=== PATIENT | female | born 1975 | race Hispanic/Latino ===

== ENCOUNTER 2016-10-24 00:05 | Emergency (ER) | payer MEDICARE ==
[2016-10-24 00:47] LABS: Basophils % (Auto) 0.7 % (0.0-1.8); Eosinophils % (Auto) 2.3 % (0.0-4.3); Hemoglobin 14.6 gm/dl (10.1-14.3); Mean Corpuscular HGB Conc 35 % (30-34); Mean Corpuscular Hemoglobin 31 pg (28-32); Mean Corpuscular Volume 88 fl (79-97); Platelet Count 419 K/mm3 (140-440); Red Blood Count 4.75 M/mm3 (3.65-5.03); White Blood Count 7.1 K/mm3 (4.5-11.0)
[2016-10-24 01:03] LABS: Alanine Aminotransferase 19 units/L (7-56); Albumin 4.6 g/dL (3.9-5); Albumin/Globulin Ratio 1.4 %; Alkaline Phosphatase 56 units/L (35-129); Anion Gap 22 mmol/L; BUN/Creatinine Ratio 11.25; Blood Urea Nitrogen 9 mg/dL (7-17); Calcium 9.7 mg/dL (8.4-10.2); Carbon Dioxide 22 mmol/L (22-30); Chloride 101.5 mmol/L (98-107); Glucose 122 mg/dL (65-100); Lipase 15 units/L (13-60); Potassium 4.2 mmol/L (3.6-5.0); Sodium 141 mmol/L (137-145)
[2016-10-24 01:21] LABS: Bacteria,Urine 1+ /HPF (Negative); Bilirubin,Urine SM (Negative); Blood,Urine NEG (Negative); Ketones,Urine TR mg/dL (Negative); Leukocyte Esterase,Urine LG (Negative); Mucus,Urine 3+ /HPF; Nitrite,Urine NEG (Negative); Urobilinogen,Urine < 2.0 mg/dL (<2.0)
[2016-10-24 04:03] LABS: Bilirubin,Urine NEG (Negative); Blood,Urine NEG (Negative); Ketones,Urine TR mg/dL (Negative); Leukocyte Esterase,Urine TR (Negative); Mucus,Urine 3+ /HPF; Nitrite,Urine NEG (Negative); Urobilinogen,Urine < 2.0 mg/dL (<2.0)
[2016-10-24] MEDS ORDERED: NACL 0.9% 1000 ML 1,000 ML IV ONE (07:18)
[2016-10-24] MEDS ORDERED: ZOFRAN IV ONE (07:18)
--- NOTE | 2016-10-24 07:21 | Emergency Department Report ---
ED Abdominal Pain HPI - General Chief Complaint: Abdominal Pain Stated Complaint: NAUSEA, WEAK Time Seen by Provider: 10/24/16 07:12 Source: patient Mode of arrival: Ambulatory Limitations: No Limitations - History of Present Illness Initial Comments: 41 yo female with a past medical history of arthritis, migraines, hypertension, seizures, surgical history of cholecystectomy and tubal ligation presents to the hospital with complaints of nausea, vomiting, and diarrhea. Symptoms 1 week. Poor by mouth tolerance secondary to the symptoms. Patient vomiting and having a bowel movement every time she eats. She denies melena, hematochezia, hematemesis, recent travel, sick contacts, or fever. Patient complains of lower abdominal pressure when she has to have a bowel movement or urinate but denies significant pain. His pressures rated 6/10 in intensity. Also worse with palpation and intermittent. Severity scale (0 -10): 0 - Related Data Home Medications Medication Instructions Recorded Confirmed Last Taken Hydrochlorothiazide [HCTZ] 25 mg PO QDAY 04/04/15 10/24/16 10/23/16 18:00 Propranolol [Inderal] 10 mg PO BID 04/04/15 10/24/16 10/23/16 18:00 QUEtiapine [SEROquel] 200 mg PO BID 04/04/15 10/24/16 10/23/16 18:00 Sertraline [Zoloft] 100 mg PO QDAY 04/04/15 10/24/16 10/23/16 18:00 Previous Rx's Medication Instructions Recorded Last Taken Type HYDROcodone/APAP 5-325 [[place] 1 - 2 each PO Q4HR PRN #30 tablet 04/10/15 18:00 Rx 5/325] Loperamide [Imodium] 2 mg PO Q2HR PRN #20 capsule 10/24/16 Unknown Rx Ondansetron [Zofran Odt] 4 mg PO Q8HR PRN #20 tab.rapdis 10/24/16 Unknown Rx Allergies Allergy/AdvReac Type Severity Reaction Status Date / Time metaxalone [From Skelaxin] Allergy Seizure Verified 10/24/16 02:32 naproxen Allergy Seizure Verified 10/24/16 02:32 ED Review of Systems ROS: Stated complaint: NAUSEA, WEAK Other details as noted in HPI Comment: All other systems reviewed and negative Other: Constitutional: No fevers chills Eyes: No eye pain visual changes ENT: No ear pain or throat pain Neck: Denies pain Respiratory: Denies cough wheezing shortness of breath Cardiovascular: Denies chest pain, palpitations, syncope GI: As per HPI : Denies dysuria Musculoskeletal: Denies back pain, joint swelling Skin: Denies rash, lesions, erythema Neurologic: Denies headache, numbness, weakness Psychiatric: Denies suicidal ideation, hallucinations ED Past Medical Hx - Past Medical History Previous Medical History?: Yes Hx Hypertension: Yes (FOR 6 MTHS) Hx Renal Disease: No Hx Arthritis: Yes (IN BACK) Hx Headaches / Migraines: Yes (MIGRAINES) Hx Seizures: Yes ( A KID, LAST ONE IN 2000) Hx Asthma: No Hx HIV: No Additional medical history: bulging disc / djd - Surgical History Past Surgical History?: Yes Hx Cholecystectomy: Yes Additional Surgical History: tubal ligation - Social History Smoking Status: Never Smoker Substance Use Type: None - Medications Home Medications: Home Medications Medication Instructions Recorded Confirmed Last Taken Type Hydrochlorothiazide [HCTZ] 25 mg PO QDAY 04/04/15 10/24/16 10/23/16 18:00 History Propranolol [Inderal] 10 mg PO BID 04/04/15 10/24/16 10/23/16 18:00 History QUEtiapine [SEROquel] 200 mg PO BID 04/04/15 10/24/16 10/23/16 18:00 History Sertraline [Zoloft] 100 mg PO QDAY 04/04/15 10/24/16 10/23/16 18:00 History HYDROcodone/APAP 5-325 [[place] 1 - 2 each PO Q4HR PRN #30 tablet 04/10/1510/23/16 18:00 Rx 5/325] Loperamide [Imodium] 2 mg PO Q2HR PRN #20 capsule 10/24/16 Unknown Rx Ondansetron [Zofran Odt] 4 mg PO Q8HR PRN #20 tab.rapdis 10/24/16 Unknown Rx ED Physical Exam - General Limitations: No Limitations - Other Other exam information: General: No limitations, patient is alert in no acute distress Head exam: Atraumatic, normocephalic Eyes exam: Normal appearance, pupils equal reactive to light, extraocular movements intact ENT: Moist mucous membrane, normal oropharynx Neck exam: Normal inspection, full range of motion, no meningismus nontender Respiratory exam: Clear to auscultation bilateral, no wheezes, rales, crackles Cardiovascular: Normal rate and rhythm, normal heart sounds Abdomen: Soft, nondistended, increased bowel sounds, left lower quadrant and suprapubic tenderness, no rebound or guarding Extremity: Full range of motion normal inspection no deformity Back: Normal Inspection, full range of motion, no tenderness Neurologic: Alert, oriented x3, cranial nerves intact, no motor or sensory deficit Psychiatric: normal affect, normal mood Skin: Warm, dry, intact ED Course Vital Signs 10/24/16 10/24/16 10/24/16 00:12 02:16 06:00 Temperature 99.3 F Pulse Rate 109 H 88 75 Respiratory 22 16 16 Rate Blood Pressure 120/88 Blood Pressure 108/74 111/58 [Left] O2 Sat by Pulse 99 95 95 Oximetry - Reevaluation(s) Reevaluation #1: 10/24/16 09:54 Patient received 1 L normal saline and Zofran with improvement in nausea vomiting. Able to tolerate fluid intake ED Medical Decision Making - Lab Data Result diagrams: 10/24/16 00:19 10/24/16 00:19 Lab Results 10/24/16 10/24/16 10/24/16 Range/Units 00:16 00:19 00:19 WBC 7.1 (4.5-11.0) K/mm3 RBC 4.75 (3.65-5.03) M/mm3 Hgb 14.6 H (10.1-14.3) gm/dl Hct 42.0 (30.3-42.9) % MCV 88 (79-97) fl MCH 31 (28-32) pg MCHC 35 H (30-34) % RDW 14.0 (13.2-15.2) % Plt Count 419 (140-440) K/mm3 Lymph % (Auto) 37.5 H (13.4-35.0) % [place] % (Auto) 10.1 H (0.0-7.3) % Eos % (Auto) 2.3 (0.0-4.3) % Baso % (Auto) 0.7 (0.0-1.8) % Lymph # 2.7 (1.2-5.4) K/mm3 [place] # 0.7 (0.0-0.8) K/mm3 Eos # 0.2 (0.0-0.4) K/mm3 Baso # 0.0 (0.0-0.1) K/mm3 Seg Neutrophils % 49.4 (40.0-70.0) % Seg Neutrophils # 3.5 (1.8-7.7) K/mm3 Sodium 141 (137-145) mmol/L Potassium 4.2 (3.6-5.0) mmol/L Chloride 101.5 (98-107) mmol/L Carbon Dioxide 22 (22-30) mmol/L Anion Gap 22 mmol/L BUN 9 (7-17) mg/dL Creatinine 0.8 (0.7-1.2) mg/dL Estimated GFR > 60 ml/min BUN/Creatinine Ratio 11.25 % Glucose 122 H (65-100) mg/dL Calcium 9.7 (8.4-10.2) mg/dL Total Bilirubin 0.40 (0.1-1.2) mg/dL AST 17 (5-40) units/L ALT 19 (7-56) units/L Alkaline Phosphatase 56 (35-129) units/L Total Protein 8.0 (6.3-8.2) g/dL Albumin 4.6 (3.9-5) g/dL Albumin/Globulin Ratio 1.4 % Lipase 15 (13-60) units/L HCG, Qual (Negative) Urine Color Ledy (Yellow) Urine Turbidity Turbid (Clear) Urine pH 5.0 (5.0-7.0) Ur Specific [place] 1.030 (1.003-1.030) Urine Protein 100 mg/dl (Negative) mg/dL Urine Glucose (UA) Neg (Negative) mg/dL Urine Ketones Tr (Negative) mg/dL Urine Blood Neg (Negative) Urine Nitrite Neg (Negative) Urine Bilirubin Sm (Negative) Urine Ictotest Negative (Negative) Urine Urobilinogen < 2.0 (<2.0) mg/dL Ur Leukocyte Esterase Lg (Negative) Urine WBC (Auto) 53.0 H (0.0-6.0) /HPF Urine RBC (Auto) 22.0 (0.0-6.0) /HPF U Epithel Cells (Auto) 93.0 H (0-13.0) /HPF Urine Bacteria (Auto) 1+ (Negative) /HPF Urine WBC Clumps 2+ /HPF Calcium Oxalate Crystal 3+ Hyaline Casts 6 /LPF Urine Mucus 3+ /HPF 10/24/16 10/24/16 Range/Units 00:19 03:37 WBC (4.5-11.0) K/mm3 RBC (3.65-5.03) M/mm3 Hgb (10.1-14.3) gm/dl Hct (30.3-42.9) % MCV (79-97) fl MCH (28-32) pg MCHC (30-34) % RDW (13.2-15.2) % Plt Count (140-440) K/mm3 Lymph % (Auto) (13.4-35.0) % [place] % (Auto) (0.0-7.3) % Eos % (Auto) (0.0-4.3) % Baso % (Auto) (0.0-1.8) % Lymph # (1.2-5.4) K/mm3 [place] # (0.0-0.8) K/mm3 Eos # (0.0-0.4) K/mm3 Baso # (0.0-0.1) K/mm3 Seg Neutrophils % (40.0-70.0) % Seg Neutrophils # (1.8-7.7) K/mm3 Sodium (137-145) mmol/L Potassium (3.6-5.0) mmol/L Chloride (98-107) mmol/L Carbon Dioxide (22-30) mmol/L Anion Gap mmol/L BUN (7-17) mg/dL Creatinine (0.7-1.2) mg/dL Estimated GFR ml/min BUN/Creatinine Ratio % Glucose (65-100) mg/dL Calcium (8.4-10.2) mg/dL Total Bilirubin (0.1-1.2) mg/dL AST (5-40) units/L ALT (7-56) units/L Alkaline Phosphatase (35-129) units/L Total Protein (6.3-8.2) g/dL Albumin (3.9-5) g/dL Albumin/Globulin Ratio % Lipase (13-60) units/L HCG, Qual Negative (Negative) Urine Color Yellow (Yellow) Urine Turbidity Clear (Clear) Urine pH 5.0 (5.0-7.0) Ur Specific [place] 1.029 (1.003-1.030) Urine Protein 100 mg/dl (Negative) mg/dL Urine Glucose (UA) Neg (Negative) mg/dL Urine Ketones Tr (Negative) mg/dL Urine Blood Neg (Negative) Urine Nitrite Neg (Negative) Urine Bilirubin Neg (Negative) Urine Ictotest (Negative) Urine Urobilinogen < 2.0 (<2.0) mg/dL Ur Leukocyte Esterase Tr (Negative) Urine WBC (Auto) 5.0 (0.0-6.0) /HPF Urine RBC (Auto) 6.0 (0.0-6.0) /HPF U Epithel Cells (Auto) 2.0 (0-13.0) /HPF Urine Bacteria (Auto) (Negative) /HPF Urine WBC Clumps /HPF Calcium Oxalate Crystal Hyaline Casts 2 /LPF Urine Mucus 3+ /HPF - Radiology Data Radiology results: report reviewed CT abdomen and pelvis IV contrast: Liquid stool throughout the colon and rectosigmoid in keeping with history of diarrhea. No inflammatory changes. Interval cholecystectomy. Other incidental findings see CT report - Medical Decision Making Plan to discharge patient home on medications for symptoms nausea vomiting and diarrhea. Outpatient follow-up will be encouraged - Differential Diagnosis gastroenteritis, diverticulitis, appendicitis Critical Care Time: No Critical care attestation.: If time is entered above; I have spent that time in minutes in the direct care of this critically ill patient, excluding procedure time. ED Disposition Clinical Impression: Gastroenteritis Disposition: DC-01 TO HOME OR SELFCARE Is pt being admited?: No Does the pt Need Aspirin: No Condition: Stable Instructions: Gastroenteritis (ED) Additional Instructions: Take the medication as prescribed. Follow-up with your doctor. Return if symptoms worsen Prescriptions: Loperamide [Imodium] 2 mg PO Q2HR PRN #20 capsule PRN Reason: Diarrhea Ondansetron [Zofran Odt] 4 mg PO Q8HR PRN #20 tab.rapdis PRN Reason: Nausea And Vomiting Referrals: ZOË RATLIFF MD [Primary Care Provider] - 2-3 Days Time of Disposition: 09:57
[2016-10-24] MEDS ORDERED: NACL ONE (07:59)
--- NOTE | 2016-10-24 08:35 | Cat Scan Report ---
CT ABDOMEN AND PELVIS WITH CONTRAST INDICATION: Lower abdominal pain, nausea, vomiting, diarrhea. COMPARISON: 11/30/2014. FINDINGS: Abdomen and pelvis CT performed following intravenous administration of 100 cc of Omnipaque 300. LUNG BASES: Right hemidiaphragm slightly elevated. Otherwise unremarkable. ABDOMEN: Interval cholecystectomy. Right hepatic lobe again approximately 20 cm in midclavicular length. Otherwise homogenous liver and spleen. Patent veins. Pancreas, adrenals, aorta, IVC and kidneys within normal limits. Small retroaortic component of a circumaortic left renal vein, axial image 160, series 2. No ascites or significant adenopathy. Nonopacified GI tract evaluation limited, though grossly nonobstructive. Normal appendix. Liquid colonic stool. Fat-containing umbilical hernia with a transverse neck of 1.4 cm again noted. PELVIS: Uterus, adnexa/ovaries and urinary bladder appear within normal limits. Liquid rectosigmoid contents. No free fluid or significant adenopathy. Mild spinal degenerative spurring at few levels. Right seventh rib old healed fracture seen, image 12. CONCLUSION: 1. Liquid stool throughout the colon and rectosigmoid, in keeping with provided history of diarrhea. No acute inflammatory changes though noted. 2. Interval cholecystectomy with few other incidental findings, as above. Thank you for the opportunity to participate in this patient's care.
[2016-10-24] MEDS ORDERED: IMODIUM PO ONE (08:52)
[2016-10-24 10:18] VITALS: BP 121/69
== END 2016-10-24 10:19 | disposition home or self-care (01) ==
LOC: ED 00:05
DX: K52.9 Noninfective gastroenteritis and colitis, unspecified (principal); I10 Essential (primary) hypertension; G43.909 Migraine, unspecified, not intractable, without status migrainosus
CPT/HCPCS: 36415; 74177; 80053; 81001; 83690; 84703; 85025; 96361; 96374; 99284; J2405; J7030; Q9967